=== PATIENT | male | born 1950 | race Caucasian/White ===

== ENCOUNTER 2019-02-11 19:14 | Inpatient (IN) ==
[2019-02-11] MEDS ORDERED: PROMETHAZINE 12.5 MG/50.5 ML BAG IV STA (19:42)
[2019-02-11] MEDS ORDERED: SODIUM CHLORIDE 0.9% 1000ML 1,000 ML IV SCH (19:45)
[2019-02-11 20:41] LABS: Alanine Aminotransferase 58 U/L (12-78); Albumin Globulin Ratio 1.4 (0.9-2); Albumin Level 4.1 gm/dl (3.4-5.0); Alkaline Phosphatase 63 U/L (45-117); Aspartate Aminotransferase 44 U/L (15-37); BUN Creatinine Ratio 10.4 (10-20); Bilirubin,Total 1.1 mg/dl (0.2-1); Blood Urea Nitrogen 6 mg/dl (7-18); Calcium 8.8 mg/dl (8.5-10.1); Carbon Dioxide 24 mmol/L (21-32); Chloride 76 mmol/L (98-107); Creatinine Clr Calc Pharmacy 123.7 ml/min; Est GFR (African American) 120.6; Globulin 2.9 gm/dl (2.5-4.0); Glucose 108 mg/dl (70-99); Potassium 3.5 mmol/L (3.5-5.1); Sodium 111 mmol/L (136-145); Troponin I < 0.015 ng/ml (0-0.045)
[2019-02-11] MEDS ORDERED: SODIUM BICARB 8.4% INJ 50 MEQ/50 ML SYR IV STA (20:42)
[2019-02-11] MEDS ORDERED: SODIUM CHLORIDE 0.9% 500 ML IV SCH (20:45)
--- NOTE | 2019-02-11 20:47 | CT Scan Report ---
CT head/brain wo con CLINICAL HISTORY: Nausea, territory dysfunction, recent subarachnoid hemorrhage. COMPARISON STUDY: 02/02/2019 TECHNIQUE: Axial CT of the brain is performed from the vertex to the skull base. IV contrast was not administered for this examination. A dose lowering technique was utilized adhering to the principles of ALARA. CT DOSE: 537.48 mGy.cm FINDINGS: No intra or extra-axial mass lesions are visualized. There is no CT evidence of acute cortical infarc tion. There is no evidence of midline shift. There is no acute hemorrhage. No acute calvarial fractu res are visualized. There are patchy white matter hypodensities likely on a small vessel basis. There is no evidence of pathologic ventricular dilatation. There is a left mastoid effusion. There is a small amount of fluid within the left middle ear cavity. There is been interval resolution of the previously identified proximal pneumocephalus and subarachn oid hemorrhage. A left temporal bone fracture is again evident. IMPRESSION: 1. No acute intracranial findings 2. Redemonstration of a left temporal bone fracture 3. Left mastoid effusion. Small amount of fluid within the left middle ear cavity 4. Interval resolution of the tiny pneumocephalus. 5. Interval resolution of the subarachnoid hemorrhage. Electronically signed by: Glenn Abreu M.D. 02/11/2019 8:46 PM
[2019-02-11 20:55] LABS: Hematocrit (blood only) 37.9 % (42-52); Hemoglobin 14.7 g/dL (14.0-18.0); Mean Corpuscular Hgb Conc 38.8 g/dL (32-36); Mean Corpuscular Volume 87.5 fL (80-100); Platelet Count 160 K/uL (130-400); Red Blood Count 4.33 M/uL (4.7-6.1); White Blood Count 7.28 K/uL (4.8-10.8)
[2019-02-11 20:57] LABS: Basophils # (auto) 0.01 K/uL (0-0.2); Basophils % (auto) 0.1 %; Eosinophils # (auto) 0.02 K/uL (0-0.5); Eosinophils % (auto) 0.3 %; Immature Granulocytes # (auto) 0.04 K/uL (0.00-0.02); Immature Granulocytes % (auto) 0.5 %; Lymphocytes # (auto) 0.58 K/uL (1.2-3.4); Monocytes # (auto) 0.92 K/uL (0.11-0.59); Monocytes % (auto) 12.6 %; Neutrophils # (auto) 5.71 K/uL (1.4-6.5); Neutrophils % (auto) 78.5 %
--- NOTE | 2019-02-11 22:01 | History & Physical Report ---
Date of Service February 11, 2019 Assessment & Plan (1) Hyponatremia: Patient mentating well. Multifactorial : Largely secondary to hypovolemia with note of ketonuria Home diuretic, SSRI, alcohol intake contributory recent traumatic subarachnoid hemorrhage, temporal bone fracture fracture left. hypertension, slight elevated Medical telemetry Careful correction of sodium Hyponatremia work-up Nephrology consult RE hyponatremia Appropriate to hold home diuretic, SSRI for now DVT prophylaxis. SCDs RE recent SAH Full code History of Present Illness Chief Complaint: Nausea, dizziness Primary Care Provider: Alexis Thomas MD History obtained from patient, family, and records. Medical history significant for hypertension, hyperlipidemia, past tobacco abuse, daily alcohol intake, recent traumatic subarachnoid hemorrhage, temporal bone fracture fracture left. Recent confinement last February 03, 2019 at [facility] for concussion secondary to traumatic SAH, temporal bone fracture left following a fall while trying to learn pickleball. Patient also had bloody otorrhea and decreased hearing on the left following injury. Conservative management during 1 day confinement following evaluation by [facility] neurosurgery and Otolaryngology specialists. Patient advised to follow-up with local ENT specialist 2 weeks from discharge. At home, patient had poor appetite. Tolerable left achy headache symptoms. Dizziness described as lightheadedness. No weakness confusion or seizures. No chest pain, no S OB. Denies NSAID intake as he was cautioned about taking them upon discharge from [facility]. Usual daily consumption of 2 beers. 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 Allergies Allergy/AdvReac Type Severity Reaction Status Date / Time No Known Allergies Allergy Unverified 02/11/19 21:21 Home Medications Home Medications Medication Instructions Recorded Confirmed Type atenolol 100 mg PO DAILY 02/02/19 02/11/19 History citalopram 20 mg PO PM 02/02/19 02/11/19 History lisinopril-hydrochlorothiazide 1 tab PO DAILY 02/02/19 02/11/19 History simvastatin 40 mg PO PM 02/02/19 02/11/19 History ciprofloxacin-dexamethasone 5 drp OTL BID 02/11/19 02/11/19 History [Ciprodex] docusate sodium [Col-Rite] 100 mg PO BID 02/11/19 02/11/19 History folic acid 1 mg PO DAILY 02/11/19 02/11/19 History multivitamin 1 tab PO DAILY 02/11/19 02/11/19 History oxycodone 5 mg PO Q4H PRN 02/11/19 02/11/19 History sennosides [senna] 8.6 mg PO BID 02/11/19 02/11/19 History Past Med/Surg History Medical History Traumatic subarachnoid hemorrhage (Acute) Pneumocephalus (Acute) Hypertension (Chronic) Social History Preferred Language: Tajik Communication Ability: Effective Flight Control Tower Operator Required: No Beliefs That Will Affect Care: None Current Living Situation: Alone Other Information That Helps Us Care for You: No Feels Safe at Home: Yes Safety Concerns: Feels Safe At This Time Smoking Status: Current some day smoker Tobacco Type: pipe Hx Alcohol Use: Yes Alcohol type: beer Hx Substance Use: No Review of Systems Review of Systems: As per HPI, all 10 systems reviewed, all other ROS negative Physical Exam Physical Exam: GENERAL: Comfortable, pleasant, slightly hard of hearing, no respiratory distress, hyponasal voice SKIN: Normal color, warm HEENT: Bespectacled, [place] palpebral conjunctivae, no ptosis, dry buccal mucosa NECK : Supple, no tenderness CHEST : CTA, no tenderness HEART : RRR, no obvious murmurs ABDOMEN: Some distention, nontender EXTREMITIES : No LE swelling/tenderness, no other conspicuous deformities noted NEUROLOGIC : Coherent, no facial asymmetry, mild hearing impairment, no other gross focality Results & Data Vital Signs (Past 12 Hours) Vital Signs Temp Pulse Resp BP Pulse Ox 02/11/19 21:01 67 16 153/90 H 96 02/11/19 20:49 64 17 169/114 H 96 02/11/19 19:17 36.5 C 64 18 178/96 H 94 Laboratory Results Laboratory Results WBC 7.28 K/uL (4.8-10.8) 02/11/19 19:59 RBC 4.33 M/uL (4.7-6.1) L 02/11/19 19:59 Hgb 14.7 g/dL (14.0-18.0) 02/11/19 19:59 Hct 37.9 % (42-52) L 02/11/19 19:59 MCV 87.5 fL (80-100) 02/11/19 19:59 MCH 33.9 pg (25-34) 02/11/19 19:59 MCHC 38.8 g/dL (32-36) H 02/11/19 19:59 Plt Count 160 K/uL (130-400) 02/11/19 19:59 Immature Gran % (Auto) 0.5 % 02/11/19 19:59 Neut % (Auto) 78.5 % 02/11/19 19:59 Lymph % (Auto) 8.0 % 02/11/19 19:59 Ellis % (Auto) 12.6 % 02/11/19 19:59 Eos % (Auto) 0.3 % 02/11/19 19:59 Baso % (Auto) 0.1 % 02/11/19 19:59 Immature Gran # (Auto) 0.04 K/uL (0.00-0.02) H 02/11/19 19:59 Neut # (Auto) 5.71 K/uL (1.4-6.5) 02/11/19 19:59 Lymph # (Auto) 0.58 K/uL (1.2-3.4) L 02/11/19 19:59 Ellis # (Auto) 0.92 K/uL (0.11-0.59) H 02/11/19 19:59 Eos # (Auto) 0.02 K/uL (0-0.5) 02/11/19 19:59 Baso # (Auto) 0.01 K/uL (0-0.2) 02/11/19 19:59 Sodium 111 mmol/L (136-145) L* 02/11/19 19:47 Potassium 3.5 mmol/L (3.5-5.1) 02/11/19 19:47 Chloride 76 mmol/L (98-107) L 02/11/19 19:47 Carbon Dioxide 24 mmol/L (21-32) 02/11/19 19:47 13.0 (3-11) H 02/11/19 19:47 BUN 6 mg/dl (7-18) L 02/11/19 19:47 0.59 mg/dl (0.6-1.4) L 02/11/19 19:47 Est Cr Clr Drug Dosing 123.7 ml/min 02/11/19 19:47 Est GFR ( Amer) 120.6 02/11/19 19:47 Est GFR (Non-Af Amer) 104.0 02/11/19 19:47 10.4 (10-20) 02/11/19 19:47 Glucose 108 mg/dl (70-99) H 02/11/19 19:47 Calcium 8.8 mg/dl (8.5-10.1) 02/11/19 19:47 1.1 mg/dl (0.2-1) H 02/11/19 19:47 AST 44 U/L (15-37) H 02/11/19 19:47 ALT 58 U/L (12-78) 02/11/19 19:47 63 U/L (45-117) 02/11/19 19:47 < 0.015 ng/ml (0-0.045) 02/11/19 19:47 7.0 gm/dl (6.4-8.2) 02/11/19 19:47 4.1 gm/dl (3.4-5.0) 02/11/19 19:47 2.9 gm/dl (2.5-4.0) 02/11/19 19:47 1.4 (0.9-2) 02/11/19 19:[address] head: 1. No acute intracranial findings 2. Redemonstration of a left temporal bone fracture 3. Left mastoid effusion. Small amount of fluid within the left middle ear cavity 4. Interval resolution of the tiny pneumocephalus. 5. Interval resolution of the subarachnoid hemorrhage.
[2019-02-11 22:02] LABS: Magnesium 1.7 mg/dl (1.8-2.4)
--- NOTE | 2019-02-11 22:09 | Emergency Department Note ---
Entered by Yola Negro acting as a scribe for Isak Belcher MD History of Present Illness General Chief complaint: Nausea Stated complaint: NAUSEA, LEFT EAR HEARING LOSS Time Seen by Provider: 02/11/19 19:20 Source: patient History of Present Illness Onset (ago): day(s) 7 Location: head (dizziness) Pain Consistency: + other (worsening) Exacerbated By: + movement (walking) Associated symptoms: + headaches (mild) and + nausea/vomiting (intermittent) The patient is a 68 white M w/ PMHx traumatic subarachnoid hemorrhage, pneumocephalus, and HTN who presents to the ED w/ CC of worsening dizziness beginning 7 days ago. He states that on February 03 he was in the ED after suffering a traumatic subarachnoid hemorrhage and pneumocephalus due to a fall from playing pickle ball. He adds that he was transferred to [facility]. He notes that he was discharged on February 04. He states that he was not prescribed seizure medications. He notes that his dizziness is exacerbated with walking. He states that he is currently experiencing nausea, intermittent vomiting, and mild headaches. He denies experiencing abdominal pain. He also denies any recent falls or medical problems. He notes that he occasionally smokes a pipe. He adds that he does not use alcohol. Home Medications Home Medications Medication Instructions Recorded Confirmed Type atenolol 100 mg PO DAILY 02/02/19 02/11/19 History citalopram 20 mg PO PM 02/02/19 02/11/19 History lisinopril-hydrochlorothiazide 1 tab PO DAILY 02/02/19 02/11/19 History simvastatin 40 mg PO PM 02/02/19 02/11/19 History ciprofloxacin-dexamethasone 5 drp OTL BID 02/11/19 02/11/19 History [Ciprodex] docusate sodium [Col-Rite] 100 mg PO BID 02/11/19 02/11/19 History folic acid 1 mg PO DAILY 02/11/19 02/11/19 History multivitamin 1 tab PO DAILY 02/11/19 02/11/19 History oxycodone 5 mg PO Q4H PRN 02/11/19 02/11/19 History sennosides [senna] 8.6 mg PO BID 02/11/19 02/11/19 History Allergies Allergy/AdvReac Type Severity Reaction Status Date / Time No Known Allergies Allergy Unverified 02/11/19 21:21 Past Med/Surg History Medical History Traumatic subarachnoid hemorrhage (Acute) Pneumocephalus (Acute) Hypertension (Chronic) Social History Feels Safe at Home: Yes Smoking Status: Current some day smoker Review of Systems See HPI for pertinent positives & negatives. and A total of 10 systems reviewed and were otherwise negative Physical Exam Vital Signs Vital Signs - 24 hr 02/11/19 19:17 02/11/19 19:59 02/11/19 20:49 Temperature 36.5 C Temperature Source Oral Sepsis Recent Fever Within 48 Hours No Sepsis New/Unexplained Change in Mental Status No Sepsis Action Taken by Nursing No Action Required Pulse Rate 64 64 Pulse Rate from SpO2 Sensor 64 Respiratory Rate 18 17 Blood Pressure 178/96 H 169/114 H Blood Pressure Mean 123 132 Pulse Oximetry 94 96 Oxygen Delivery Method Room Air Room Air 02/11/19 21:01 Temperature Temperature Source Sepsis Recent Fever Within 48 Hours Sepsis New/Unexplained Change in Mental Status Sepsis Action Taken by Nursing Pulse Rate 67 Pulse Rate from SpO2 Sensor 67 Respiratory Rate 16 Blood Pressure 153/90 H Blood Pressure Mean 111 Pulse Oximetry 96 Oxygen Delivery Method Room Air GENERAL: Well appearing, well nourished, NAD, non-toxic. EYE EXAM: Normal conjunctiva. PERRL, no anisocoria and EOM's grossly intact w/o pain. OROPHARYNX: Moist mucus membranes. Grossly normal dentition. NECK: Supple, no nuchal rigidity, no adenopathy, non-tender. no signs of meningismus. EARS: Right TM clear, light reflex present. Left TM likely dried blood behind tympanic membrane, light reflex absent. LUNGS: Clear to auscultation. Normal chest wall mechanics. HEART: NSR, no MRG. ABDOMEN: Abdomen soft, non-tender, normo-active bowel sounds, no masses, no rebound or guarding. BACK: No CVA TTP. SKIN: No rashes and no bruising. UPPER EXTREMITIES: Upper extremities are grossly normal. LOWER EXTREMITIES: No pitting edema. No calf pain. NEURO EXAM: A&O x3, cranial nerves II-XII grossly intact, normal speech, 5/5 strength throughout, no sensory deficits, mild difficulty with finger to nose, good heel to howard, no pronator drift, moves all 4 extremities on command w/o issue. Course 1922: The patient was evaluated in room C11. A complete history and physical exam was performed. 2101: I reviewed the patient's case with Dr. Brooks. Dr. Brooks is fine with the patient to come to the unit or be seen as needed. He does not think the p atient needs to be mandatorily admitted. 2110: I reviewed the patient's case with Dr. Guanaco [facility]. He will evaluate the patient for further management. 2121: I updated the patient on his admission. Consultations Consultation #1: I reviewed the patient's case with Dr. Brooks. Dr. Brooks is fine with the patient to come to the unit or be seen as needed. He does not think the patient needs to be mandatorily admitted. Time: 21:02 Consultation #2: I reviewed the patient's case with Dr. Guanaco [facility]. He will evaluate the patient for further management. Time: 21:11 Administered Medications Discontinued Medications Promethazine HCl (Phenergan) 12.5 mg in 50.5 mls @ 202 mls/hr IV NOW STA Stop: 02/11/19 19:56 Last Infusion: 02/11/19 20:22 Dose: 0 mls/hr Documented by: [id number] Admin: 02/11/19 20:00 Dose: 202 mls/hr Documented by: [id number] Sodium Chloride (Nss 1000ml) 1,000 mls @ 999 mls/hr IV .Q1H1M LATOYA Stop: 02/11/19 20:45 Last Infusion: 02/11/19 21:47 Dose: 0 mls/hr Documented by: [id number] Admin: 02/11/19 20:00 Dose: 999 mls/hr Documented by: [id number] Sodium Bicarbonate (Sodium Bicarbonate 8.4%) 50 meq IV NOW STA Stop: 02/11/19 20:43 Last Admin: 02/11/19 20:48 Dose: 50 meq Documented by: [id number] Medical Decision Making Medical Records Attestation: I reviewed the patient's medical records. Home Medications Current Medication List: was personally reviewed by me Laboratory Data Attestation: I reviewed the patient's lab results. Result diagrams: 02/11/19 19:59 02/11/19 19:47 Lab Results 02/11/19 02/11/19 02/11/19 Range/Units 19:47 19:59 21:09 WBC 7.28 (4.8-10.8) K/uL RBC 4.33 L (4.7-6.1) M/uL Hgb 14.7 (14.0-18.0) g/dL Hct 37.9 L (42-52) % MCV 87.5 (80-100) fL MCH 33.9 (25-34) pg MCHC 38.8 H (32-36) g/dL Plt Count 160 (130-400) K/uL Immature Gran % (Auto) 0.5 % Neut % (Auto) 78.5 % Lymph % (Auto) 8.0 % [place] % (Auto) 12.6 % Eos % (Auto) 0.3 % Baso % (Auto) 0.1 % Immature Gran # (Auto) 0.04 H (0.00-0.02) K/uL Neut # (Auto) 5.71 (1.4-6.5) K/uL Lymph # (Auto) 0.58 L (1.2-3.4) K/uL [place] # (Auto) 0.92 H (0.11-0.59) K/uL Eos # (Auto) 0.02 (0-0.5) K/uL Baso # (Auto) 0.01 (0-0.2) K/uL Sodium 111 L* (136-145) mmol/L Potassium 3.5 (3.5-5.1) mmol/L Chloride 76 L (98-107) mmol/L Carbon Dioxide 24 (21-32) mmol/L Anion Gap 13.0 H (3-11) BUN 6 L (7-18) mg/dl Creatinine 0.59 L (0.6-1.4) mg/dl Est Cr Clr Drug Dosing 123.7 ml/min Est GFR ( Amer) 120.6 Est GFR (Non-Af Amer) 104.0 BUN/Creatinine Ratio 10.4 (10-20) Glucose 108 H (70-99) mg/dl Osmolality 233 L* (280-300) mOsm/kg Calcium 8.8 (8.5-10.1) mg/dl Magnesium 1.7 L (1.8-2.4) mg/dl Total Bilirubin 1.1 H (0.2-1) mg/dl AST 44 H (15-37) U/L ALT 58 (12-78) U/L Alkaline Phosphatase 63 (45-117) U/L Troponin I < 0.015 (0-0.045) ng/ml Total Protein 7.0 (6.4-8.2) gm/dl Albumin 4.1 (3.4-5.0) gm/dl Globulin 2.9 (2.5-4.0) gm/dl Albumin/Globulin Ratio 1.4 (0.9-2) TSH 2.670 (0.300-4.500) uIu/ml Imaging Data Radiologist's Impression: Radiology results as stated below per my review and the radiologist's interpretation: CT head/brain wo con CLINICAL HISTORY: Nausea, territory dysfunction, recent subarachnoid hemorrhage. COMPARISON STUDY: 02/02/2019 TECHNIQUE: Axial CT of the brain is performed from the vertex to the skull base. IV contrast was not administered for this examination. A dose lowering technique was utilized adhering to the principles of ALARA. CT DOSE: 537.48 mGy.cm FINDINGS: No intra or extra-axial mass lesions are visualized. There is no CT evidence of acute cortical infarction. There is no evidence of midline shift. There is no acute hemorrhage. No acute calvarial fractures are visualized. There are patchy white matter hypodensities likely on a small vessel basis. There is no evidence of pathologic ventricular dilatation. There is a left mastoid effusion. There is a small amount of fluid within the left middle ear cavity. There is been interval resolution of the previously identified proximal pneumocephalus and subarachnoid hemorrhage. A left temporal bone fracture is again evident. IMPRESSION: 1. No acute intracranial findings 2. Redemonstration of a left temporal bone fracture 3. Left mastoid effusion. Small amount of fluid within the left middle ear cavity 4. Interval resolution of the tiny pneumocephalus. 5. Interval resolution of the subarachnoid hemorrhage. Electronically signed by: Glenn Abreu M.D. 02/11/2019 8:46 PM ECG Data Indication: nausea Rate (beats per minute): 64 Rhythm: normal sinus Findings: + other (normal intervals, normal axis), + Q waves (Lead 3) and + T- wave inversion (Lead 3) Blood Pressure Blood Pressure Findings: Elevated blood pressure Blood Pressure Disposition: further management by hospitalist NIGHAT Narrative The patient is a 68 white M w/ PMHx traumatic subarachnoid hemorrhage, pneumocephalus, and HTN who presents to the ED w/ CC of worsening dizziness beginning 7 days ago. Differential diagnosis includes: gastroenteritis, food borne illness, infections, appendicitis, diverticulitis, inflammatory bowel disease, obstruction, GI bleed, biliary pathology, as well as others were entertained. Patient was seen and evaluated the bedside. The patient was relating some mild nausea as well as some difficulty with ambulation. Patient also complained of some mild dizziness. Of note the patient was recently seen here after he had a fall while playing pickle ball and suffered a an acute traumatic subarachnoid hemorrhage and temporal bone fracture with mild pneumocephalus. Patient was treated with IV antibiotics Keppra and was sent to [facility]. The patient states he stayed for approximately 1 day and was discharged. On exam the patient does have a likely clotted hemotympanum of the left side. Imagine this is likely contributing to the patient's amatory dysfunction and associated dysmetria. The patient otherwise has a nonfocal neurologic exam. The patient was noted to have an acute change in his sodium at 111. A repeat was ordered along with urine and serum osm as well as urine electrolytes. The patient was given 1 amp of bicarb given the concern for possible seizures if his sodium lowers. He was also started on IV fluids. I did briefly speak with the sales coordinator who related that he would be happy to have the patient in the unit if needed. I did speak the on-call hospitalist who agreed to further evaluate t reat the patient. Patient was admitted to the medicine service. Impression & Plan Hyponatremia, Nausea, Dysmetria, Encounter for smoking cessation counseling Critical Care Time I have personally spent 45 minutes of critical care time in the direct management of this patient. This includes bedside care, interpretation of diagnostic studies, and testing, discussion with consultants, patient, and family members, and other required patient management activities. This 45 minutes is in excess of all separately billable procedures. Critical Care Time: Yes Discharge Plan Visit Data Chief Complaint: Nausea Stated Complaint: NAUSEA, LEFT EAR HEARING LOSS ED Provider: Isak Belcher Discharge Problem: Hyponatremia, Nausea, Dysmetria, Encounter for smoking cessation counseling Patient Disposition: Admitted As Inpatient Forms Stand Alone Forms: My [facility] Prescriptions Prescriptions: No Action sennosides [senna] 8.6 mg tablet 8.6 mg PO BID RF: 0 docusate sodium [Col-Rite] 100 mg capsule 100 mg PO BID RF: 0 folic acid 1 mg tablet 1 mg PO DAILY RF: 0 oxycodone 5 mg tablet 5 mg PO Q4H PRN (Reason: Pain) RF: 0 Ciprodex 0.3-0.1 % drops,suspension 5 drp OTL BID RF: 0 multivitamin 1 tab PO DAILY RF: 0 atenolol 100 mg tablet 100 mg PO DAILY RF: 0 citalopram 20 mg tablet 20 mg PO PM RF: 0 lisinopril-hydrochlorothiazide 20-25 mg tablet 1 tab PO DAILY RF: 0 simvastatin 40 mg tablet 40 mg PO PM RF: 0 Referrals Referrals: Alexis Thomas MD [Primary Care Provider] - The scribe's documentation has been prepared under my direction and personally reviewed by me in its entirety. I confirm that the note above accurately refl ects all work, treatment, procedures, and medical decision making performed by me.
[2019-02-11] MEDS ORDERED: PROMETHAZINE HCL 12.5 MG in SODIUM CHLORIDE 0.9% 50 ML IV PRN (23:48)
[2019-02-11] MEDS ORDERED: OXYCODONE HCL IR 5 MG TAB (IMMEDIATE RELEASE) PO PRN (23:48)
[2019-02-11] MEDS ORDERED: MAGNESIUM SULFATE / D5W 1 GM/100 ML BAG IV ONE (23:48)
[2019-02-11] MEDS ORDERED: LORazepam 0.25 MG/0.5 ML VIAL IV PRN (23:48)
[2019-02-11] MEDS ORDERED: ACETAMINOPHEN 325 MG TAB PO PRN (23:48)
[2019-02-12] MEDS: CIPRO 0.3%/DEXAMETHASONE 0.1% OTIC SUSP 7.5ML OTL SCH ×4 (01:13→20:14)
[2019-02-12 02:22] LABS: Appearance Urine Clear (Clear); Bilirubin Urine Negative (Negative); Blood Urine Negative (Negative); Color Urine Yellow; Glucose Urine UA Trace (Negative); Ketones Urine 2+ (Negative); Leukocyte Esterase Urine Negative (Negative); Nitrite Urine Negative (Negative); Protein Urine Negative (Negative); Specific Gravity Urine 1.012 (1.000-1.030); Urobilinogen Urine Negative (Negative); pH Urine 7.5 (4.5-7.5)
[2019-02-12] MEDS ORDERED: SODIUM CHLORIDE 0.45 % 1,000 ML IV STA (03:14)
[2019-02-12] MEDS: LISINOPRIL 20 MG TAB PO SCH (03:33)
[2019-02-12 07:28] LABS: Hematocrit (blood only) 34.1 % (42-52); Hemoglobin 13.2 g/dL (14.0-18.0); Mean Corpuscular Hgb Conc 38.7 g/dL (32-36); Mean Corpuscular Volume 87.2 fL (80-100); Mean Platelet Volume 10.4 fL (7.4-10.4); Platelet Count 137 K/uL (130-400); RDW Coefficient of Variation 12.5 % (11.5-14.5); Red Blood Count 3.91 M/uL (4.7-6.1); White Blood Count 5.72 K/uL (4.8-10.8)
[2019-02-12 07:29] LABS: Basophils # (auto) 0.02 K/uL (0-0.2); Basophils % (auto) 0.3 %; Eosinophils # (auto) 0.05 K/uL (0-0.5); Eosinophils % (auto) 0.9 %; Immature Granulocytes # (auto) 0.04 K/uL (0.00-0.02); Immature Granulocytes % (auto) 0.7 %; Lymphocytes # (auto) 0.87 K/uL (1.2-3.4); Lymphocytes % (auto) 15.2 %; Monocytes # (auto) 0.94 K/uL (0.11-0.59); Monocytes % (auto) 16.4 %; Neutrophils % (auto) 66.5 %; RBC Morphology Unremarkable
[2019-02-12 07:37] LABS: BUN Creatinine Ratio 9.6 (10-20); Calcium 7.9 mg/dl (8.5-10.1); Creatinine Clr Calc Pharmacy 165.9 ml/min; Est GFR (Non-African American) 117.4; Magnesium 2.1 mg/dl (1.8-2.4); Potassium 3.7 mmol/L (3.5-5.1)
[2019-02-12] MEDS: MULTIVITAMIN TAB PO SCH (08:05)
[2019-02-12] MEDS: SENNA 8.6 MG TAB PO SCH ×2 (08:05→20:08)
[2019-02-12] MEDS: DOCUSATE SODIUM 100 MG CAP PO SCH ×2 (08:05→20:08)
[2019-02-12] MEDS: ATENOLOL 50 MG TABLET PO SCH (08:05)
[2019-02-12] MEDS: FOLIC ACID 1 MG TAB PO SCH (08:05)
[2019-02-12] MEDS ORDERED: LISINOPRIL 20 MG TAB PO SCH (09:00)
[2019-02-12] MEDS ORDERED: DEXTROSE 5% 250 ML IV SCH (09:00)
--- NOTE | 2019-02-12 10:14 | Consultation Report ---
DATE OF CONSULTATION: 02/12/2019 REASON FOR CONSULT: Hyponatremia. HISTORY OF PRESENT ILLNESS: The patient is a 68-year-old male who was brought to the Emergency Department last night by his son. The patient was complaining of multiple vague symptoms including some nausea, poor appetite, dizziness, some headache. The patient recently had traumatic subarachnoid hemorrhage for which he was admitted at [facility]. At that time, his sodium was normal at 137. It is worth noting that the patient is on hydrochlorothiazide for many years, but did not have hyponatremia before. In the Emergency Department last night, his sodium was 111, after which he got some normal saline and with that sodium went up to 117 in about 6 hours' time period after which fluid was changed over to half normal saline and this morning, sodium is 116. 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 The patient is completely asymptomatic at this time and his vital signs are stable. He does drink massive amount of liquid. He could not tell me the exact amount, but he drinks at least one big part of coffee, many, many glasses of water as well as few beers every day. He is on SSRI, citalopram as well as hydrochlorothiazide at home. PAST MEDICAL AND SURGICAL HISTORY: Traumatic subarachnoid hemorrhage recently, pneumocephalus, hypertension. SOCIAL HISTORY: He lives by himself. He does smoke every day as well as drink beer every day. REVIEW OF SYSTEMS: Twelve systems reviewed and is otherwise negative. PHYSICAL EXAMINATION: GENERAL: Awake, alert, oriented x3. HEENT: Mucous membrane is moist. NECK: Supple. No jugular venous distention. VITAL SIGNS: Most recent blood pressure is 165/91, pulse rate 62 per minute, 99% on room air, afebrile. CHEST: Bilateral clear to auscultation. CARDIOVASCULAR: S1, S2 normal. ABDOMEN: Soft, nontender. EXTREMITIES: Shows no edema. SKIN: Normal without any rash noted. LABORATORY TESTS: The last 3 sodium are 111, 117 and 116. Serum osmolarity 233, urine osmolarity 252, urine sodium 54, BUN 4, creatinine 0.44. Sodium 116, potassium 3.7, chloride 81, calcium 7.9. Head CT done yesterday shows no new findings. ASSESSMENT AND PLAN: A 68-year-old male with recent traumatic subarachnoid hemorrhage, now presenting with severe hyponatremia with presenting sodium of 111. Fortunately, it does not appear he had any neurological symptoms. 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 Even though he has been on hydrochlorothiazide and has always been drinking lots of liquid, he used to have normal serum sodium even 10 days ago, so we have to assume this was triggered by subarachnoid hemorrhage. At this time, we will do moderate fluid restriction of 1800 mL We will be extra careful to make sure that the serum sodium does not go up fast, especially given the recent traumatic subarachnoid hemorrhage and multiple neurological findings. His risk of demyelination syndrome may be higher than usual. At this time, the goal is to get serum sodium up by 9 mEq in a 24-hour time period and 18 mEq in a 48-hour time period So, hopefully should be able to get his serum sodium More than 130 by Saturday morning. At this time, I would hold citalopram as well as hydrochlorothiazide as they do add to the problem of hyponatremia. Serum sodium is going up slightly higher than the desired goal, so I would give D5 water 250 mL. We will check BMP every 4-6 hours to titrate the fluid type as well as rate and to guide our therapy. Case has been discussed in detail with the primary service. JOYCE
--- NOTE | 2019-02-12 11:50 | Hospitalist Progress Note ---
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 with subarachnoid hemorrhage on 02/02 Complicated by use of hydrochlorothiazide and use of alcohol Appreciate nephrology input and recommendation Sodium level this morning 116 Monitor PRP at around 5 PM today and the sodium level should not be more than 9 mEq per 24 hours Fluid restriction to 1800 mL a day Clinically he does not have any symptoms (2) Traumatic subarachnoid hemorrhage: Repeat CAT scan of the head did show resolution of the subarachnoid hemorrhage The temporal fracture has been improving (3) Hypertension: Continue lisinopril We will stop hydrochlorothiazide on discharge Tobacco use disorder Advised to quit a small DVT prophylaxis SCDs CODE STATUS Full s Subjective 02/12 Patient was seen and examined in medical telemetry unit is a 68-year-old male significant past medical history of hypertension, hyperlipidemia, past tobacco abuse, daily alcohol intake, and recent traumatic subarachnoid hemorrhage on the sixth of this month admitted with extreme weakness, tiredness and dizziness with a sodium of 111 on admission Denies any symptoms this morning Sodium level has gone up to 116 Review of Systems Review of Systems: All systems reviewed and are unremarkable except as noted below Constitutional: + weakness Respiratory: no dyspnea Gastrointestinal: no abdominal pain, no bloating and no nausea Neurologic: + generalized weakness; no gait abnormality, no unsteadiness, no numbness, no tremor(s), no headache(s) and no confusion Physical Exam Physical Exam: Lying in bed comfortably Constitutional: well developed and well nourished; no acute distress Eyes: PERRL, conjunctivae normal, anicteric sclerae ENMT: external ear and nose normal, oropharynx normal Neck: trachea midline, no thyromegaly Respiratory: normal respiratory effort, lungs clear to auscultation Cardiovascular: Rate/Rhythm: regular rate and regular rhythm Gastrointestinal (Abdomen): normal bowel sounds, soft, nontender, no hepatosplenomegaly Musculoskeletal: Extremities: extremities normal to inspection Neurologic: PERRL, EOMI, accommodation nl, no face palsy, no dysarthria Psychiatric: A+Ox3, euthymic affect Lymphatic: no cervical or axillary lymphadenopathy Results & Data Vital Signs (Past 12 Hours) Vital Signs Temp Pulse Pulse Resp BP Pulse Ox 02/12/19 11:29 36.8 C 54 L 18 149/89 H 95 02/12/19 08:00 62 02/12/19 07:43 36.5 C 61 20 165/91 H 99 02/12/19 04:26 36.4 C L 59 L 18 155/84 H 98 02/12/19 01:49 62 02/11/19 23:49 37.0 C 80 20 173/84 H 94 Laboratory Results Short CBC 02/11/19 02/12/19 Range/Units 19:59 06:46 WBC 7.28 5.72 (4.8-10.8) K/uL Hgb 14.7 13.2 L (14.0-18.0) g/dL Hct 37.9 L 34.1 L (42-52) % Plt Count 160 137 (130-400) K/uL BMP 02/11/19 02/12/19 02/12/19 19:47 00:15 06:46 Sodium 111 L* 117 L* D 116 L* Potassium 3.5 3.7 Chloride 76 L 81 L Carbon Dioxide 24 29 BUN 6 L 4 L Creatinine 0.59 L 0.44 L Glucose 108 H 84 Calcium 8.8 7.9 L Cardiac Enzymes 02/11/19 Range/Units 19:47 Troponin I < 0.015 (0-0.045) ng/ml Liver Function 02/11/19 Range/Units 19:47 Total Bilirubin 1.1 H (0.2-1) mg/dl AST 44 H (15-37) U/L ALT 58 (12-78) U/L Alkaline Phosphatase 63 (45-117) U/L Albumin 4.1 (3.4-5.0) gm/dl Urine 02/12/19 Range/Units 02:13 Urine Color Yellow Urine Appearance Clear (Clear) Urine pH 7.5 (4.5-7.5) Ur Specific [place] 1.012 (1.000-1.030) Urine Protein Negative (Negative) Urine Glucose (UA) Trace H (Negative) Medications Administered Current Inpatient Medications Acetaminophen (Tylenol) 650 mg PO Q4H PRN PRN Reason: Pain or Fever Stop: 03/13/19 23:47 Last Admin: 02/12/19 06:22 Dose: 650 mg Documented by: Atenolol (Tenormin) 100 mg PO DAILY [facility] Stop: 03/14/19 08:59 Last Admin: 02/12/19 08:05 Dose: 100 mg Documented by: Ciprofloxacin/Dexamethasone (Ciprodex Otic) 5 drops OTL BID [facility] Stop: 03/13/19 23:47 Last Admin: 02/12/19 08:06 Dose: 5 drops Documented by: Docusate Sodium (Colace) 100 mg PO BID [facility] Stop: 03/14/19 08:59 Last Admin: 02/12/19 08:05 Dose: 100 mg Documented by: Folic Acid (Folvite) 1 mg PO DAILY [facility] Stop: 03/14/19 08:59 Last Admin: 02/12/19 08:05 Dose: 1 mg Documented by: Lorazepam (Ativan) 0.25 mg in 0.5 mls @ 0.5 mls/min IV Q4H PRN PRN Reason: Anxiety Stop: 03/13/19 23:47 Promethazine HCl 12.5 mg/ (Sodium Chloride) 50.5 mls @ 202 mls/hr IV Q6H PRN PRN Reason: Nausea And Vomiting Stop: 03/13/19 23:47 Dextrose (D5w) 250 mls @ 80 mls/hr IV .Q3H8M [facility] Stop: 02/12/19 12:07 Last Admin: 02/12/19 09:27 Dose: 80 mls/hr Documented by: Lisinopril (Zestril) 20 mg PO QAM [facility] Stop: 03/14/19 03:29 Last Admin: 02/12/19 03:33 Dose: 20 mg Documented by: Multivitamins (Multivitamin Tab) 1 tab PO DAILY [facility] Stop: 03/14/19 08:59 Last Admin: 02/12/19 08:05 Dose: 1 tab Documented by: Oxycodone HCl (Roxicodone Immediate Rel) 5 mg PO Q4H PRN PRN Reason: Pain Stop: 02/25/19 23:47 Sennosides (Senokot) 8.6 mg PO BID [facility] Stop: 03/14/19 08:59 Last Admin: 02/12/19 08:05 Dose: 8.6 mg Documented by: Simvastatin (Zocor) 40 mg PO PM [facility] Stop: 03/14/19 20:59 (1) Traumatic subarachnoid hemorrhage Encounter type: initial encounter Loss of consciousness presence/duration: with LOC of 30 min or less Qualified Code(s): S06.6X1A - Traumatic subarachnoid hemorrhage with loss of consciousness of 30 minutes or less, initial encounter
[2019-02-12 19:05] LABS: Calcium 8.1 mg/dl (8.5-10.1); Creatinine Clr Calc Pharmacy 79.3 ml/min; Est GFR (African American) 98.7; Est GFR (Non-African American) 85.2; Potassium 3.4 mmol/L (3.5-5.1)
[2019-02-12] MEDS ORDERED: POTASSIUM CHLORIDE 20 MEQ TABCR PO STA (19:10)
[2019-02-12] MEDS: SIMVASTATIN 40 MG TAB PO SCH (20:08)
[2019-02-13 06:58] LABS: Hematocrit (blood only) 35.6 % (42-52); Hemoglobin 13.2 g/dL (14.0-18.0); Mean Corpuscular Hgb Conc 37.1 g/dL (32-36); Mean Corpuscular Volume 90.4 fL (80-100); Mean Platelet Volume 10.6 fL (7.4-10.4); Platelet Count 127 K/uL (130-400); RDW Coefficient of Variation 12.6 % (11.5-14.5); RDW Standard Deviation 41.3 fL (36.4-46.3); Red Blood Count 3.94 M/uL (4.7-6.1); White Blood Count 5.04 K/uL (4.8-10.8)
[2019-02-13 07:00] LABS: Calcium 7.8 mg/dl (8.5-10.1); Creatinine Clr Calc Pharmacy 128.1 ml/min; Est GFR (African American) 122.3; Est GFR (Non-African American) 105.5; Magnesium 2.2 mg/dl (1.8-2.4); Potassium 3.9 mmol/L (3.5-5.1)
[2019-02-13 07:20] LABS: Basophils # (auto) 0.02 K/uL (0-0.2); Basophils % (auto) 0.4 %; Eosinophils # (auto) 0.05 K/uL (0-0.5); Immature Granulocytes # (auto) 0.02 K/uL (0.00-0.02); Immature Granulocytes % (auto) 0.4 %; Lymphocytes # (auto) 0.88 K/uL (1.2-3.4); Lymphocytes % (auto) 17.5 %; Monocytes # (auto) 0.83 K/uL (0.11-0.59); Monocytes % (auto) 16.5 %; Neutrophils # (auto) 3.24 K/uL (1.4-6.5); Neutrophils % (auto) 64.2 %
[2019-02-13] MEDS: SENNA 8.6 MG TAB PO SCH ×2 (07:41→20:55)
[2019-02-13] MEDS: MULTIVITAMIN TAB PO SCH (07:41)
[2019-02-13] MEDS: LISINOPRIL 20 MG TAB PO SCH (07:41)
[2019-02-13] MEDS: ATENOLOL 50 MG TABLET PO SCH (07:41)
[2019-02-13] MEDS: DOCUSATE SODIUM 100 MG CAP PO SCH ×2 (07:41→20:53)
[2019-02-13] MEDS: CIPRO 0.3%/DEXAMETHASONE 0.1% OTIC SUSP 7.5ML OTL SCH ×2 (07:41→20:53)
[2019-02-13] MEDS: FOLIC ACID 1 MG TAB PO SCH (07:41)
[2019-02-13] MEDS ORDERED: NSS + 20MEQ KCL 20 MEQ/1,000 ML BAG IV SCH (09:45)
[2019-02-13] MEDS ORDERED: SODIUM CHLORIDE 0.9% 500 ML IV SCH (10:00)
[2019-02-13] MEDS ORDERED: FUROSEMIDE 20 MG in SYRINGE 0 ML IV ONE (10:30)
--- NOTE | 2019-02-13 10:37 | Progress Note ---
DATE: 02/13/2019 NEPHROLOGY PROGRESS NOTE SUBJECTIVE: Overnight, no new issues. Sodium is going up steadily at an appropriate rate. He is completely asymptomatic. PHYSICAL EXAMINATION: VITAL SIGNS: Blood pressure is slightly high at 174/97, pulse rate 55, temperature 36 degrees Celsius, 97% on room air. HEENT: Mucous membrane is moist. NECK: Supple. No jugular venous distention. CHEST: Bilateral clear to auscultation. CARDIOVASCULAR: S1, S2 regular. ABDOMEN: Soft, nontender. EXTREMITIES: Shows no edema. LABORATORY TESTS: From this morning shows a hemoglobin of 13.2, WBC 5000, platelet count 127,000. Sodium this morning is 121, chloride 87, BUN 7, creatinine 0.57, calcium 7.8. ASSESSMENT AND PLAN: A 68-year-old male with recent traumatic subarachnoid hemorrhage, now presenting with severe hyponatremia with presenting serum sodium of 111. 1. Hyponatremia secondary to combination of SIADH triggered by recent subarachnoid hemorrhage. RECOMMENDATIONS: 1. Continue to hold hydrochlorothiazide and citalopram. 2. The goal is to get the serum sodium more than 130 by tomorrow morning. 3. Continue fluid restriction of 1800 mL. 4. Normal saline 500 mL. 5. Lasix 30 mg IV x1. 6. Continue to monitor BMP every 6 hours. 7. Tentative plan for discharge is tomorrow. At the time of discharge, he should not be put on hydrochlorothiazide. I have no problem restarting citalopram. He may need a higher dose of lisinopril as well as a new blood pressure medication depending on his blood pressure tomorrow. MTDD
[2019-02-13] MEDS ORDERED: FUROSEMIDE 40 MG in SYRINGE 0 ML IV ONE (12:00)
--- NOTE | 2019-02-13 14:13 | Hospitalist Progress Note ---
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 with subarachnoid hemorrhage on 02/02 Complicated by use of hydrochlorothiazide and use of alcohol Appreciate nephrology input and recommendation Sodium level this morning 116 Monitor PRP at around 5 PM today and the sodium level should not be more than 9 mEq per 24 hours Fluid restriction to 1800 mL a day Sodium level has come up to 121 today He will have normal saline infusion and 1 dose of Lasix today Recheck sodium in the morning, if the level is above 128 will discharge home tomorrow (2) Traumatic subarachnoid hemorrhage: Repeat CAT scan of the head did show resolution of the subarachnoid hemorrhage The temporal fracture has been improving No acute symptoms from that (3) Hypertension: Continue lisinopril We will stop hydrochlorothiazide on discharge Continue with JAYLEN inhibitor but no hydrochlorothiazide on discharge Tobacco use disorder Advised to quit smoking DVT prophylaxis SCDs CODE STATUS Full s Subjective 02/12 Patient was seen and examined in medical telemetry unit is a 68-year-old male significant past medical history of hypertension, hyperlipidemia, past tobacco abuse, daily alcohol intake, and recent traumatic subarachnoid hemorrhage on the sixth of this month admitted with extreme weakness, tiredness and dizziness with a sodium of 111 on admission Denies any symptoms this morning Sodium level has gone up to 116 02/13 Patient is seen and examined in medical telemetry unit He denies any complaints today Sodium level has come up to 121 Review of Systems Constitutional: + weakness Neurologic: + generalized weakness; no gait abnormality, no unsteadiness, no numbness, no tremor(s), no headache(s) and no confusion Physical Exam Physical Exam: No apparent distress at rest Constitutional: well developed and well nourished; no acute distress Has been ambulating without any difficulty Eyes: PERRL, conjunctivae normal, anicteric sclerae ENMT: external ear and nose normal, oropharynx normal Neck: trachea midline, no thyromegaly Respiratory: normal respiratory effort, lungs clear to auscultation Cardiovascular: Rate/Rhythm: regular rate and regular rhythm Gastrointestinal (Abdomen): normal bowel sounds, soft, nontender, no hepatosplenomegaly Musculoskeletal: Extremities: extremities normal to inspection Neurologic: PERRL, EOMI, accommodation nl, no face palsy, no dysarthria Psychiatric: A+Ox3, euthymic affect Lymphatic: no cervical or axillary lymphadenopathy Results & Data Vital Signs (Past 12 Hours) Vital Signs Temp Pulse Pulse Resp BP BP Pulse Ox 02/13/19 11:54 36.5 C 50 L 20 129/84 95 02/13/19 08:42 55 L 02/13/19 07:36 36.6 C 64 18 174/97 H 97 02/13/19 04:29 36.4 C L 58 L 20 153/89 H 96 Laboratory Results Short CBC 02/13/19 Range/Units 06:00 WBC 5.04 (4.8-10.8) K/uL Hgb 13.2 L (14.0-18.0) g/dL Hct 35.6 L (42-52) % Plt Count 127 L (130-400) K/uL BMP 02/12/19 02/13/19 02/13/19 18:08 00:08 06:00 Sodium 118 L* 120 L 121 L Potassium 3.4 L 3.9 Chloride 83 L 87 L Carbon Dioxide 27 28 BUN 6 L 7 Creatinine 0.92 D 0.57 L D Glucose 136 H 83 Calcium 8.1 L 7.8 L 02/13/19 12:02 Sodium 124 L Potassium Chloride Carbon Dioxide BUN Creatinine Glucose Calcium Medications Administered Current Inpatient Medications Acetaminophen (Tylenol) 650 mg PO Q4H PRN PRN Reason: Pain or Fever Stop: 03/13/19 23:47 Last Admin: 02/12/19 06:22 Dose: 650 mg Documented by: Atenolol (Tenormin) 100 mg PO DAILY [facility] Stop: 03/14/19 08:59 Last Admin: 02/13/19 07:41 Dose: 100 mg Documented by: Ciprofloxacin/Dexamethasone (Ciprodex Otic) 5 drops OTL BID [facility] Stop: 03/13/19 23:47 Last Admin: 02/13/19 07:41 Dose: Not Given Documented by: Docusate Sodium (Colace) 100 mg PO BID [facility] Stop: 03/14/19 08:59 Last Admin: 02/13/19 07:41 Dose: 100 mg Documented by: Folic Acid (Folvite) 1 mg PO DAILY [facility] Stop: 03/14/19 08:59 Last Admin: 02/13/19 07:41 Dose: 1 mg Documented by: Lorazepam (Ativan) 0.25 mg in 0.5 mls @ 0.5 mls/min IV Q4H PRN PRN Reason: Anxiety Stop: 03/13/19 23:47 Promethazine HCl 12.5 mg/ (Sodium Chloride) 50.5 mls @ 202 mls/hr IV Q6H PRN PRN Reason: Nausea And Vomiting Stop: 03/13/19 23:47 Potassium Chloride/Sodium Chloride (Normal Saline W/20 Meq Kcl) 20 meq in 1,000 mls @ 100 mls/hr IV .Q10H [facility] Stop: 02/13/19 19:44 Last Admin: 02/13/19 10:39 Dose: 100 mls/hr Documented by: Lisinopril (Zestril) 20 mg PO QAM [facility] Stop: 03/14/19 03:29 Last Admin: 02/13/19 07:41 Dose: 20 mg Documented by: Multivitamins (Multivitamin Tab) 1 tab PO DAILY [facility] Stop: 03/14/19 08:59 Last Admin: 02/13/19 07:41 Dose: 1 tab Documented by: Oxycodone HCl (Roxicodone Immediate Rel) 5 mg PO Q4H PRN PRN Reason: Pain Stop: 02/25/19 23:47 Sennosides (Senokot) 8.6 mg PO BID [facility] Stop: 03/14/19 08:59 Last Admin: 02/13/19 07:41 Dose: 8.6 mg Documented by: Simvastatin (Zocor) 40 mg PO PM [facility] Stop: 03/14/19 20:59 Last Admin: 02/12/19 20:08 Dose: 40 mg Documented by: (1) Traumatic subarachnoid hemorrhage Encounter type: initial encounter Loss of consciousness presence/duration: with LOC of 30 min or less Qualified Code(s): S06.6X1A - Traumatic subarachnoid hemorrhage with loss of consciousness of 30 minutes or less, initial encounter
[2019-02-13 18:37] LABS: BUN Creatinine Ratio 8.6 (10-20); Calcium 7.9 mg/dl (8.5-10.1); Creatinine Clr Calc Pharmacy 78.5 ml/min; Est GFR (African American) 97.4; Est GFR (Non-African American) 84.1; Potassium 3.9 mmol/L (3.5-5.1)
[2019-02-13] MEDS: SIMVASTATIN 40 MG TAB PO SCH (20:55)
[2019-02-14 06:47] LABS: BUN Creatinine Ratio 13.1 (10-20); Calcium 8.2 mg/dl (8.5-10.1); Creatinine Clr Calc Pharmacy 130.4 ml/min; Est GFR (African American) 123.2; Est GFR (Non-African American) 106.3; Magnesium 2.2 mg/dl (1.8-2.4); Phosphorus 2.7 mg/dl (2.5-4.9); Potassium 4.2 mmol/L (3.5-5.1)
[2019-02-14] MEDS: SENNA 8.6 MG TAB PO SCH (08:33)
[2019-02-14] MEDS: ATENOLOL 50 MG TABLET PO SCH (08:34)
[2019-02-14] MEDS: DOCUSATE SODIUM 100 MG CAP PO SCH (08:34)
[2019-02-14] MEDS: LISINOPRIL 20 MG TAB PO SCH (08:34)
[2019-02-14] MEDS: FOLIC ACID 1 MG TAB PO SCH (08:34)
[2019-02-14] MEDS: MULTIVITAMIN TAB PO SCH (08:34)
[2019-02-14] MEDS: CIPRO 0.3%/DEXAMETHASONE 0.1% OTIC SUSP 7.5ML OTL SCH (08:35)
[2019-02-14] MEDS ORDERED: FUROSEMIDE 40 MG TAB PO ONE (09:30)
[2019-02-14] MEDS ORDERED: AMLODIPINE BESYLATE 5 MG TAB PO ONE (09:30)
--- NOTE | 2019-02-14 09:58 | Nephrology Progress Note ---
Date of Service February 14, 2019 Assessment & Plan (1) Hypertension: His blood pressure is above target today in setting of holding his hydrochlorothiazide. I recommend starting him on amlodipine 5 mg daily and Lasix 40 mg p.o. daily. Keep holding hydrochlorothiazide in setting of hyponatremia. He will continue to monitor his blood pressure at home. (2) Hyponatremia: Patient with hyponatremia likely due to syndrome of inappropriate ADH. Sodium is improving at 124 this morning. Patient is insisting on going home and threatening to leave AMA if not discharged. We discussed that he will need to maintain fluid restriction of 1.2 L daily at home. I advised him to cut back on the alcohol. He will need to repeat BMP on Saturday and results faxed to my office. I will see him in follow-up in the office in 2 weeks or next available appointment. Subjective Patient seen in follow-up for hypertension and hyponatremia. Patient feels well this morning he denies any shortness of breath or confusion. He is drinking well. No urinary symptoms. Sodium is up to 1.4 this morning. Patient is eager to go home and is threatening to leave AMA if not discharged. He is agreeable to following all the recommendations including fluid restriction at home and repeat labs next week. Review of Systems Review of Systems: All systems reviewed & are unremarkable except as noted in HPI & below Physical Exam Physical Exam: General exam: Appears comfortable, no acute distress HEENT: Pupils are equal and reactive to light Neck: No JVD, neck is supple trachea is midline Respiratory system: Clear breath sounds bilaterally. Gastrointestinal: Abdomen is soft, non distended, non tender, bowel sounds are present CVS: Regular rate and rhythm. No murmurs, rubs or gallops Musculoskeletal: No joint or muscle tenderness Extremities: Non tender, no edema, peripheral pulses are present Neuro: Oriented, no tremors, no focal neurological deficits Skin: No rashes Results & Data Vital Signs (Past 12 Hours) Vital Signs Temp Pulse Pulse Resp BP BP Pulse Ox 02/14/19 07:18 54 L 02/14/19 07:09 36.4 C L 57 L 18 185/98 H 97 02/14/19 04:07 36.4 C L 62 16 155/94 H 98 02/14/19 03:18 59 L 02/13/19 23:39 36.7 C 61 20 156/92 H 97 Laboratory Results Laboratory Results - last 24 hr 02/13/19 02/13/19 02/14/19 12:02 17:56 05:57 Sodium 124 L 122 L 124 L Potassium 3.9 4.2 Chloride 88 L 92 L Carbon Dioxide 27 28 Anion Gap 7.0 4.0 BUN 8 7 Creatinine 0.93 D 0.56 L D Est Cr Clr Drug Dosing 78.5 130.4 Est GFR ( Amer) 97.4 123.2 Est GFR (Non-Af Amer) 84.1 106.3 BUN/Creatinine Ratio 8.6 L 13.1 Glucose 141 H 85 Calcium 7.9 L 8.2 L Phosphorus 2.7 Magnesium 2.2 (1) Hypertension Hypertension type: essential hypertension Qualified Code(s): I10 - Essential (primary) hypertension
[2019-02-14 11:33] LABS: BUN Creatinine Ratio 10.7 (10-20); Calcium 8.2 mg/dl (8.5-10.1); Creatinine Clr Calc Pharmacy 114.1 ml/min; Est GFR (African American) 116.6; Est GFR (Non-African American) 100.6
--- NOTE | 2019-02-14 11:50 | Hospitalist Progress Note ---
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 head injury with subarachnoid hemorrhage on 02/02 Complicated by use of hydrochlorothiazide and use of alcohol Appreciate nephrology input and recommendation Sodium level this morning 116 Monitor PRP at around 5 PM today and the sodium level should not be more than 9 mEq per 24 hours Fluid restriction to 1800 mL a day Sodium level has come up to 121 today He will have normal saline infusion and 1 dose of Lasix today Sodium level has gone up to 124 Will give a dose of 40 mg oral Lasix and check PRP at 1:00 He does not want to stay any longer in the hospital and will be discharged in the afternoon Regular dose of Lasix as an outpatient (2) Traumatic subarachnoid hemorrhage: Repeat CAT scan of the head did show resolution of the subarachnoid hemorrhage The temporal fracture has been improving No acute symptoms from that (3) Hypertension: Continue lisinopril We will stop hydrochlorothiazide on discharge Continue with JAYLEN inhibitor but no hydrochlorothiazide on discharge Amlodipine 5 mg p.o. daily was added to control the blood pressure Tobacco use disorder Advised to quit smoking DVT prophylaxis SCDs CODE STATUS Full s Subjective 02/12 Patient was seen and examined in medical telemetry unit is a 68-year-old male significant past medical history of hypertension, hyperlipidemia, past tobacco abuse, daily alcohol intake, and recent traumatic subarachnoid hemorrhage on the sixth of this month admitted with extreme weakness, tiredness and dizziness with a sodium of 111 on admission Denies any symptoms this morning Sodium level has gone up to 116 02/13 Patient is seen and examined in medical telemetry unit He denies any complaints today Sodium level has come up to 121 02/14 Patient was seen and examined in medical telemetry unit He denies any symptoms and definitely wants to go home He has noted to have very high systolic blood pressure and sodium level is 124 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 He will be given an additional dose of Lasix this morning and amlodipine for blood pressure control Review of Systems Constitutional: + weakness Neurologic: + generalized weakness; no gait abnormality, no unsteadiness, no numbness, no tremor(s), no headache(s) and no confusion Physical Exam Physical Exam: No apparent distress at rest Constitutional: well developed and well nourished; no acute distress Eyes: PERRL, conjunctivae normal, anicteric sclerae ENMT: external ear and nose normal, oropharynx normal Neck: trachea midline, no thyromegaly Respiratory: normal respiratory effort, lungs clear to auscultation Cardiovascular: Rate/Rhythm: regular rate and regular rhythm Gastrointestinal (Abdomen): normal bowel sounds, soft, nontender, no hepatosplenomegaly Musculoskeletal: Extremities: extremities normal to inspection Neurologic: PERRL, EOMI, accommodation nl, no face palsy, no dysarthria Psychiatric: A+Ox3, euthymic affect Lymphatic: no cervical or axillary lymphadenopathy Results & Data Vital Signs (Past 12 Hours) Vital Signs Temp Pulse Pulse Resp BP BP Pulse Ox 02/14/19 11:06 36.6 C 55 L 18 158/90 H 97 02/14/19 07:18 54 L 02/14/19 07:09 36.4 C L 57 L 18 185/98 H 97 02/14/19 04:07 36.4 C L 62 16 155/94 H 98 02/14/19 03:18 59 L (1) Traumatic subarachnoid hemorrhage Encounter type: initial encounter Loss of consciousness presence/duration: with LOC of 30 min or less Qualified Code(s): S06.6X1A - Traumatic subarachnoid hemorrhage with loss of consciousness of 30 minutes or less, initial encounter (2) Hypertension Hypertension type: essential hypertension Qualified Code(s): I10 - Essential (primary) hypertension
--- NOTE | 2019-02-15 08:12 | Discharge Summary ---
Date of Service February 15, 2019 Admission HPI Per Admitting Provider History obtained from patient, family, and records. Medical history significant for hypertension, hyperlipidemia, past tobacco abuse, daily alcohol intake, recent traumatic subarachnoid hemorrhage, temporal bone fracture fracture left. Recent confinement last February 03, 2019 at [facility] for concussion secondary to traumatic SAH, temporal bone fracture left following a fall while trying to learn pickleball. Patient also had bloody otorrhea and decreased hearing on the left following injury. Conservative management during 1 day confinement following evaluation by [facility] neurosurgery and Otolaryngology specialists. Patient advised to follow-up with local ENT specialist 2 weeks from discharge. At home, patient had poor appetite. Tolerable left achy headache symptoms. Dizziness described as lightheadedness. No weakness confusion or seizures. No chest pain, no S OB. Denies NSAID intake as he was cautioned about taking them upon discharge from [place]. Usual daily consumption of 2 beers. 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 and complicated by use of HCTZ and more fluid intake, hypertension, recent history of head injury with subarachnoid hemorrhage-resolved Discharge Exam Constitutional well developed and well nourished; no acute distress Eyes PERRL, conjunctivae normal, anicteric sclerae ENMT external ear and nose normal, oropharynx normal Neck trachea midline, no thyromegaly Respiratory normal respiratory effort, lungs clear to auscultation Cardiovascular Rate/Rhythm: regular rate and regular rhythm Gastrointestinal (Abdomen) normal bowel sounds, soft, nontender, no hepatosplenomegaly Musculoskeletal Extremities: extremities normal to inspection Neurologic PERRL, EOMI, accommodation nl, no face palsy, no dysarthria Psychiatric A+Ox3, euthymic affect Lymphatic no cervical or axillary lymphadenopathy Discharge Data Allergies Allergy/AdvReac Type Severity Reaction Status Date / Time No Known Allergies Allergy Unverified 02/11/19 21:21 Consultations 02/11/19 21:13 ED Decision to Admit Stat 02/11/19 23:48 Consult Nephrology Routine Ordered Studies 02/11/19 19:42 CT head/brain wo con Stat Hospital Course (1) Hyponatremia: Noted to have a sodium of 111 on admission Sodium level as of sixth of this month was 137 Hyponatremia secondary to SIADH which is due to recent head injury with subarachnoid hemorrhage on 02/02 Complicated by use of hydrochlorothiazide and use of alcohol Appreciate nephrology input and recommendation Sodium level this morning 116 Monitor PRP at around 5 PM today and the sodium level should not be more than 9 mEq per 24 hours Fluid restriction to 1800 mL a day Sodium level has come up to 121 today He will have normal saline infusion and 1 dose of Lasix today Sodium level has gone up to 124 Will give a dose of 40 mg oral Lasix and check PRP at 1:00 He does not want to stay any longer in the hospital and will be discharged in the afternoon Regular dose of Lasix as an outpatient (2) Traumatic subarachnoid hemorrhage: Repeat CAT scan of the head did show resolution of the subarachnoid hemorrhage The temporal fracture has been improving No acute symptoms from that (3) Hypertension: Continue lisinopril We will stop hydrochlorothiazide on discharge Continue with JAYLEN inhibitor but no hydrochlorothiazide on discharge Amlodipine 5 mg p.o. 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 López.) Diet: Heart Healthy and Low Fiber Fluids: 1200ml (5 cups) Addtl Provider Instructions: Please avoid alcohol and maintain low fluid intake as advised Prescriptions: New lisinopril 20 mg Tablet 20 mg PO QAM 30 Days Qty: 30 RF: 0 amlodipine 5 mg tablet 5 mg PO DAILY Qty: 30 RF: 0 furosemide [Lasix] 40 mg tablet 40 mg PO DAILY Qty: 30 RF: 0 Continued sennosides [senna] 8.6 mg tablet 8.6 mg PO BID RF: 0 docusate sodium [Col-Rite] 100 mg capsule 100 mg PO BID RF: 0 folic acid 1 mg tablet 1 mg PO DAILY RF: 0 oxycodone 5 mg tablet 5 mg PO Q4H PRN (Reason: Pain) RF: 0 Ciprodex 0.3-0.1 % drops,suspension 5 drp OTL BID RF: 0 multivitamin 1 tab PO DAILY RF: 0 atenolol 100 mg tablet 100 mg PO DAILY RF: 0 citalopram 20 mg tablet 20 mg PO PM RF: 0 simvastatin 40 mg tablet 40 mg PO PM RF: 0 Discontinued lisinopril-hydrochlorothiazide 20-25 mg tablet 1 tab PO DAILY RF: 0 Stand-Alone Forms: [facility] Discharge Orders: Discharge Order (Routine); Ordered 02/14/19 Ordered By: Cherie Almaguer Admission Data Admit Date/Time: 02/11/19 22:09 Attending Provider: Cherie Almaguer Admit Provider: Sushil Dewitt Primary Care Provider: Alexis Thomas Other Providers: Sushil Dewitt ; Jennifer Weiss ; Kaiden Vega ; Jonah Dodge I ; Cherrie Ding ; Angie Beard ; Vanessa López Service: Telemetry Medical Other Interventions: Discharge Summary Assessment (RN) Last Done: 02/14/19 14:21 DC Date/Time DO NOT enter until pt leaves facility: 02/14/19 15:07
== END 2019-02-14 15:07 | disposition home or self-care (01) | DRG 645 ==
LOC: ED 19:14 → 2N 22:09